=== PATIENT | male | born 1935 | race Caucasian/White ===

== ENCOUNTER 2017-11-20 08:22 | Inpatient (IN) | payer OTHER, MEDICARE ==
[~2017-11-20] VITALS: Ht 167.6 cm; Wt 73.0 kg
[~2017-11-20 08:22] MED LIST: NO HOME MEDS
[2017-11-20] MEDS ORDERED: normal saline 1000ML IV soln IV ONE (08:35)
[2017-11-20] MEDS ORDERED: GABA-530 PO (09:10)
[2017-11-20] MEDS ORDERED: RUXO15TA PO (09:10)
[2017-11-20] MEDS ORDERED: ALLO100T15 PO (09:10)
[2017-11-20 09:28] LABS: CLARITY,URINE SLIGHTLY CLOUDY (Clear); COLOR,URINE YELLOW (Yellow); GLUCOSE, URINE NEGATIVE (Neg); KETONES,URINE NEGATIVE (Neg); LEUKOCYTE ESTERASE ,URINE TRACE (Neg); NITRITES, URINE NEGATIVE (Neg); OCCULT BLOOD,URINE SMALL (Neg); PROTEIN,URINE TRACE mg/dl (Neg); UROBILINOGEN,URINE 0.2 E.U/dL (0.2-1.0)
[2017-11-20 09:31] LABS: BASOPHILS % (AUTO) 0 % (0-1); EOSINOPHILS % (AUTO) 0.1 % (0-6); HEMATOCRIT 32.6 % (42.0-52.0); HEMOGLOBIN 10.9 g/dl (14.0-17.9); LYMPHOCYTES # (AUTO) 0.3 X10'3 (1.1-4.8); LYMPHOCYTES % (AUTO) 4.4 % (21-51); MEAN CORPUSCULAR HEMOGLOBIN 30.4 PG (27.0-31.0); MEAN CORPUSCULAR HGB CONC 33.4 % (33.0-36.5); MEAN PLATELET VOLUME 7.9 FL (7.4-10.4); MONOCYTES # (AUTO) 0.1 X10'3 (0-0.9); NEUTROPHILS # (AUTO) 5.5 X10'3 (1.8-7.7); NEUTROPHILS % (AUTO) 94.5 % (42-75); PLATELET COUNT 133 X10'3 (140-440); RED BLOOD COUNT 3.59 X10'6 (4.70-6.10); RED CELL DISTRIBUTION WIDTH 18.8 % (11.5-14.5); WHITE BLOOD COUNT 5.8 X10'3 (4.5-11.0)
[2017-11-20 09:32] LABS: UA COLLECTION TYPE STRAIGHT CATH
[2017-11-20 09:36] LABS: BACTERIA,URINE 3+ /HPF (Neg); HYALINE CASTS 0-3 /LPF (NEGATIVE); SQUAMOUS EPITHELIAL CELL,UR FEW /LPF (FEW); WBC CLUMPS,URINE FEW /HPF (NEGATIVE)
[2017-11-20 09:37] LABS: COARSE GRANULAR CAST 0-3 /LPF (NEGATIVE)
[2017-11-20 09:41] LABS: ALANINE AMINOTRANSFERASE 171 U/L (12-78); ALBUMIN 2.8 G/DL (3.4-5.0); ALBUMIN/GLOBULIN RATIO 0.7 (1.1-1.5); ALKALINE PHOSPHATASE 297 IU/L (46-116); ANION GAP 12 (8-16); ASPARTATE AMINO TRANSFERASE 108 U/L (10-37); BILIRUBIN,TOTAL 0.4 MG/DL (0.1-1.0); BLOOD UREA NITROGEN 38 MG/DL (7-18); BUN/CREATININE RATIO 16.6 (5.4-32.0); CALCIUM 8.6 MG/DL (8.5-10.1); CHLORIDE 95 MMOL/L (99-107); CREATININE 2.29 MG/DL (0.60-1.10); GLUCOSE 124 MG/DL (70-104); POTASSIUM 3.6 MMOL/L (3.5-5.1); SODIUM 129 MMOL/L (135-145); TOTAL PROTEIN 7.1 G/DL (6.4-8.2); eGFR 28 ML/MIN
[2017-11-20 09:47] LABS: ANISOCYTOSIS 2+; PLATELET ESTIMATE DECREASED; TOTAL CELLS COUNTED 100; TOXIC GRANULATION 1+; TOXIC VACUOLATION FEW
[2017-11-20 09:48] LABS: ELLIPTOCYTES FEW; TEAR DROP CELLS FEW
[2017-11-20] MEDS ORDERED: CefTRIAXone 2gm/D5W 50ml 50 ML IV ONE (09:50)
[2017-11-20] MEDS ORDERED: sulfamethoxazole/trimethoprim DS (800/160mg) tablet PO ONE (09:50)
[2017-11-20] MEDS ORDERED: mag hydrox/Alum hydrox/simeth 30ml oral suspension PO PRN (11:00)
[2017-11-20] MEDS ORDERED: acetaminophen 325mg tablet PO PRN (11:00)
[2017-11-20] MEDS ORDERED: potassium Cl 40MEQ/NS 500ml 500 ML IV PRN ×2 (11:00)
[2017-11-20] MEDS ORDERED: magnesium Cl slow-release 64mg tablet PO PRN (11:00)
[2017-11-20] MEDS ORDERED: magnesium hydroxide 30ml (MOM) UD suspension PO PRN (11:00)
[2017-11-20] MEDS ORDERED: HYDROcodone/acetaminophen 5mg/325mg tablet PO PRN (11:00)
[2017-11-20] MEDS ORDERED: magnesium 4gm in 100ml NS 100 ML IV PRN (11:00)
[2017-11-20] MEDS ORDERED: ondansetron/PF 4mg/2ml inj IV PRN (11:00)
[2017-11-20] MEDS ORDERED: magnesium/D5W IVPB 50 ML IV PRN (11:00)
[2017-11-20] MEDS ORDERED: potassium Cl 20 mEq SR tablet PO PRN ×2 (11:00)
[2017-11-20] MEDS ORDERED: bisacodyl 10mg suppository rectal RC PRN (11:00)
[2017-11-20] MEDS: potassium Cl 20mEq in NS 1,000 ML IV SCH ×2 (12:53→22:51)
[2017-11-20 15:12] VITALS: BP 147/60
[2017-11-20] MEDS: azithromycin/NS 500mg/250ml 250 ML IV SCH (17:15)
[2017-11-20 19:25] VITALS: BP 157/75
[2017-11-20] MEDS: heparin, porcine 5000 units/ml vial SQ SCH (20:00)
[2017-11-20] MEDS: lactobacillus rhamnosus 10,000 MMU CELLS/CAPSULE PO SCH ×2 (20:00→20:15)
[2017-11-20] MEDS: docusate sod 100mg capsule PO SCH (20:00)
[2017-11-20] MEDS: tamsulosin 0.4mg capsule PO SCH ×2 (20:15→20:49)
[2017-11-20] MEDS ORDERED: allopurinol 100mg tablet PO SCH (21:00)
[2017-11-20] MEDS ORDERED: gabapentin 100mg capsule PO SCH (21:00)
[2017-11-21 00:05] VITALS: BP 117/69
[2017-11-21 05:36] LABS: BASOPHILS % (AUTO) 0.3 % (0-1); EOSINOPHILS % (AUTO) 0 % (0-6); HEMATOCRIT 25.5 % (42.0-52.0); HEMOGLOBIN 8.6 g/dl (14.0-17.9); LYMPHOCYTES # (AUTO) 0.2 X10'3 (1.1-4.8); LYMPHOCYTES % (AUTO) 7.4 % (21-51); MEAN CORPUSCULAR HEMOGLOBIN 30.7 PG (27.0-31.0); MEAN CORPUSCULAR HGB CONC 33.9 % (33.0-36.5); MEAN CORPUSCULAR VOLUME 90.4 FL (78-98); MEAN PLATELET VOLUME 7.6 FL (7.4-10.4); MONOCYTES # (AUTO) 0.2 X10'3 (0-0.9); MONOCYTES % (AUTO) 7.8 % (2-12); NEUTROPHILS # (AUTO) 2.6 X10'3 (1.8-7.7); NEUTROPHILS % (AUTO) 84.5 % (42-75); PLATELET COUNT 96 X10'3 (140-440); RED BLOOD COUNT 2.82 X10'6 (4.70-6.10); RED CELL DISTRIBUTION WIDTH 18.7 % (11.5-14.5); WHITE BLOOD COUNT 3.1 X10'3 (4.5-11.0)
[2017-11-21 06:04] LABS: ALANINE AMINOTRANSFERASE 121 U/L (12-78); ALBUMIN 2.1 G/DL (3.4-5.0); ALBUMIN/GLOBULIN RATIO 0.6 (1.1-1.5); ALKALINE PHOSPHATASE 186 IU/L (46-116); ANION GAP 8 (8-16); ASPARTATE AMINO TRANSFERASE 86 U/L (10-37); BILIRUBIN,TOTAL 0.3 MG/DL (0.1-1.0); BLOOD UREA NITROGEN 23 MG/DL (7-18); BUN/CREATININE RATIO 15.1 (5.4-32.0); CALCIUM 7.6 MG/DL (8.5-10.1); CHLORIDE 106 MMOL/L (99-107); CREATININE 1.52 MG/DL (0.60-1.10); GLUCOSE 96 MG/DL (70-104); POTASSIUM 5.1 MMOL/L (3.5-5.1); SODIUM 135 MMOL/L (135-145); TOTAL CARBON DIOXIDE 20.7 MMOL/L (24-32); TOTAL PROTEIN 5.5 G/DL (6.4-8.2); eGFR 44 ML/MIN
[2017-11-21 07:00] VITALS: BP 143/69
[2017-11-21] MEDS: heparin, porcine 5000 units/ml vial SQ SCH (08:00)
[2017-11-21] MEDS: K and/or MAG REPLACEMENT MC SCH (08:00)
[2017-11-21] MEDS: CefTRIAXone/D5W-Rocephin 1gm 50 ML IV SCH (08:28)
[2017-11-21] MEDS: docusate sod 100mg capsule PO SCH ×2 (08:31→20:00)
[2017-11-21] MEDS: lactobacillus rhamnosus 10,000 MMU CELLS/CAPSULE PO SCH ×2 (08:36→19:06)
[2017-11-21] MEDS: azithromycin/NS 500mg/250ml 250 ML IV SCH (09:13)
[2017-11-21 11:28] VITALS: BP 154/57
[2017-11-21] MEDS: normal saline 1000ml 1,000 ML IV SCH (13:17)
[2017-11-21] MEDS ORDERED: ALLO100T PO (18:10)
[2017-11-21] MEDS ORDERED: GABA-530 PO (18:10)
[2017-11-21 19:00] VITALS: BP 164/56
[2017-11-21] MEDS: gabapentin 100mg capsule PO SCH (19:06)
[2017-11-21] MEDS: allopurinol 100mg tablet PO SCH (19:06)
[2017-11-21] MEDS: tamsulosin 0.4mg capsule PO SCH (20:02)
[2017-11-22] MEDS: normal saline 1000ml 1,000 ML IV SCH ×3 (01:14→23:56)
[2017-11-22 01:20] VITALS: BP 134/57
[2017-11-22 07:33] VITALS: BP 104/74
[2017-11-22 07:45] LABS: BASOPHILS % (AUTO) 0.2 % (0-1); EOSINOPHILS % (AUTO) 0.3 % (0-6); HEMATOCRIT 26.6 % (42.0-52.0); LYMPHOCYTES # (AUTO) 0.3 X10'3 (1.1-4.8); LYMPHOCYTES % (AUTO) 7.9 % (21-51); MEAN CORPUSCULAR HEMOGLOBIN 30.4 PG (27.0-31.0); MEAN CORPUSCULAR HGB CONC 33.8 % (33.0-36.5); MEAN CORPUSCULAR VOLUME 90.1 FL (78-98); MEAN PLATELET VOLUME 7.7 FL (7.4-10.4); MONOCYTES # (AUTO) 0.3 X10'3 (0-0.9); MONOCYTES % (AUTO) 7.8 % (2-12); NEUTROPHILS # (AUTO) 2.7 X10'3 (1.8-7.7); NEUTROPHILS % (AUTO) 83.8 % (42-75); PLATELET COUNT 94 X10'3 (140-440); RED BLOOD COUNT 2.95 X10'6 (4.70-6.10); RED CELL DISTRIBUTION WIDTH 18.1 % (11.5-14.5); WHITE BLOOD COUNT 3.3 X10'3 (4.5-11.0)
[2017-11-22] MEDS: docusate sod 100mg capsule PO SCH ×2 (08:00→19:37)
[2017-11-22] MEDS: K and/or MAG REPLACEMENT MC SCH (08:00)
[2017-11-22] MEDS ORDERED: azithromycin 250mg tablet PO SCH (08:00)
[2017-11-22 08:01] LABS: ALANINE AMINOTRANSFERASE 125 U/L (12-78); ALBUMIN 2.2 G/DL (3.4-5.0); ALBUMIN/GLOBULIN RATIO 0.6 (1.1-1.5); ALKALINE PHOSPHATASE 188 IU/L (46-116); ANION GAP 8 (8-16); ASPARTATE AMINO TRANSFERASE 85 U/L (10-37); BILIRUBIN,TOTAL 0.3 MG/DL (0.1-1.0); BLOOD UREA NITROGEN 18 MG/DL (7-18); BUN/CREATININE RATIO 13.5 (5.4-32.0); CALCIUM 8.4 MG/DL (8.5-10.1); CHLORIDE 105 MMOL/L (99-107); CREATININE 1.33 MG/DL (0.60-1.10); GLUCOSE 92 MG/DL (70-104); MAGNESIUM 1.8 MG/DL (1.5-2.4); POTASSIUM 4.9 MMOL/L (3.5-5.1); SODIUM 136 MMOL/L (135-145); TOTAL CARBON DIOXIDE 23.1 MMOL/L (24-32); TOTAL PROTEIN 5.7 G/DL (6.4-8.2); eGFR 52 ML/MIN
[2017-11-22] MEDS: CefTRIAXone/D5W-Rocephin 1gm 50 ML IV SCH (08:01)
[2017-11-22] MEDS: lactobacillus rhamnosus 10,000 MMU CELLS/CAPSULE PO SCH ×2 (08:02→19:35)
[2017-11-22 11:37] VITALS: BP 139/68
[2017-11-22] MEDS ORDERED: acetaminophen 325mg tablet PO PRN (15:40)
[2017-11-22 18:00] VITALS: BP 159/71
[2017-11-22] MEDS: gabapentin 100mg capsule PO SCH (19:35)
[2017-11-22] MEDS: allopurinol 100mg tablet PO SCH (19:35)
[2017-11-22] MEDS: tamsulosin 0.4mg capsule PO SCH (21:18)
[2017-11-23] VITALS: BP 140/58
[2017-11-23 06:11] LABS: BASOPHILS % (AUTO) 0.3 % (0-1); EOSINOPHILS # (AUTO) 0.1 X10'3 (0-0.9); EOSINOPHILS % (AUTO) 1.5 % (0-6); HEMATOCRIT 25.9 % (42.0-52.0); HEMOGLOBIN 8.8 g/dl (14.0-17.9); LYMPHOCYTES # (AUTO) 0.3 X10'3 (1.1-4.8); LYMPHOCYTES % (AUTO) 9.6 % (21-51); MEAN CORPUSCULAR HEMOGLOBIN 30.5 PG (27.0-31.0); MEAN CORPUSCULAR HGB CONC 33.9 % (33.0-36.5); MEAN CORPUSCULAR VOLUME 89.9 FL (78-98); MEAN PLATELET VOLUME 8.2 FL (7.4-10.4); MONOCYTES # (AUTO) 0.2 X10'3 (0-0.9); MONOCYTES % (AUTO) 5.7 % (2-12); NEUTROPHILS # (AUTO) 2.9 X10'3 (1.8-7.7); NEUTROPHILS % (AUTO) 82.9 % (42-75); PLATELET COUNT 98 X10'3 (140-440); RED BLOOD COUNT 2.88 X10'6 (4.70-6.10); RED CELL DISTRIBUTION WIDTH 18.3 % (11.5-14.5); WHITE BLOOD COUNT 3.5 X10'3 (4.5-11.0)
[2017-11-23 06:40] LABS: ALANINE AMINOTRANSFERASE 132 U/L (12-78); ALBUMIN 2.2 G/DL (3.4-5.0); ALBUMIN/GLOBULIN RATIO 0.6 (1.1-1.5); ALKALINE PHOSPHATASE 176 IU/L (46-116); ANION GAP 9 (8-16); ASPARTATE AMINO TRANSFERASE 89 U/L (10-37); BILIRUBIN,TOTAL 0.3 MG/DL (0.1-1.0); BLOOD UREA NITROGEN 19 MG/DL (7-18); BUN/CREATININE RATIO 15.2 (5.4-32.0); CALCIUM 8.5 MG/DL (8.5-10.1); CHLORIDE 106 MMOL/L (99-107); CREATININE 1.25 MG/DL (0.60-1.10); GLUCOSE 96 MG/DL (70-104); MAGNESIUM 1.6 MG/DL (1.5-2.4); POTASSIUM 4.9 MMOL/L (3.5-5.1); SODIUM 137 MMOL/L (135-145); TOTAL CARBON DIOXIDE 22.2 MMOL/L (24-32); TOTAL PROTEIN 5.6 G/DL (6.4-8.2); eGFR 56 ML/MIN
[2017-11-23 07:13] VITALS: BP 153/84
[2017-11-23] MEDS: K and/or MAG REPLACEMENT MC SCH (08:00)
[2017-11-23] MEDS: CefTRIAXone/D5W-Rocephin 1gm 50 ML IV SCH (08:28)
[2017-11-23] MEDS: lactobacillus rhamnosus 10,000 MMU CELLS/CAPSULE PO SCH (08:29)
[2017-11-23] MEDS: docusate sod 100mg capsule PO SCH (08:29)
[2017-11-23] MEDS ORDERED: TAMS0.4C32 PO (09:56)
[2017-11-23] MEDS ORDERED: AZIT500T PO (09:58)
== END 2017-11-23 12:14 | disposition home or self-care (01) | DRG 682 ==
LOC: ER 08:23 → ED HOLD 10:06 → SUR 3N 11:40
PROVIDERS: ADMIT Internal Medicine; ATTEND Internal Medicine
DX: N17.9 Acute kidney failure, unspecified (principal); J18.9 Pneumonia, unspecified organism; E87.1 Hypo-osmolality and hyponatremia; N39.0 Urinary tract infection, site not specified; D47.1 Chronic myeloproliferative disease; N18.3 Chronic kidney disease, stage 3 (moderate); B96.20 Unspecified Escherichia coli [E. coli] as the cause of diseases classified elsewhere; E86.0 Dehydration; G62.9 Polyneuropathy, unspecified; I25.10 Atherosclerotic heart disease of native coronary artery without angina pectoris; K40.90 Unilateral inguinal hernia, without obstruction or gangrene, not specified as recurrent; M35.3 Polymyalgia rheumatica; M79.7 Fibromyalgia; N28.1 Cyst of kidney, acquired; N40.1 Benign prostatic hyperplasia with lower urinary tract symptoms; R33.8 Other retention of urine; F32.9 Major depressive disorder, single episode, unspecified; M10.9 Gout, unspecified; R16.1 Splenomegaly, not elsewhere classified; Z88.1 Allergy status to other antibiotic agents; Z79.899 Other long term (current) drug therapy; Z87.442 Personal history of urinary calculi
CPT/HCPCS: 36415; 71045; 74176; 80053; 81001; 83605; 83735; 84145; 85025; 87040; 87070; 87088; 92616; 96361; 96365; 99285; J0456; J0696; J1644; J7030

== ENCOUNTER 2018-03-08 09:29 | Inpatient (IN) | payer MEDICARE, OTHER ==
[2018-03-08] VITALS (14 sets, daily range): BP systolic 111–138; BP diastolic 53–98
[~2018-03-08] VITALS: Ht 167.6 cm; Wt 76.9 kg
[~2018-03-08 09:29] MED LIST changes: +ALLO100T PO; +GABA-530 PO; -NO HOME MEDS; +RUXO15TA PO; +TAMS0.4C32 PO
[2018-03-08] MEDS ORDERED: LISI40TA4 PO (11:48)
[2018-03-08 11:52] LABS: CLARITY,URINE SLIGHTLY CLOUDY (Clear); COLOR,URINE YELLOW (Yellow); GLUCOSE, URINE NEGATIVE (Neg); KETONES,URINE NEGATIVE (Neg); LEUKOCYTE ESTERASE ,URINE LARGE (Neg); OCCULT BLOOD,URINE MODERATE (Neg); PH,URINE 6.5 (4.8-8.0); PROTEIN,URINE NEGATIVE (Neg); UROBILINOGEN,URINE 0.2 E.U/dL (0.2-1.0)
[2018-03-08 11:56] LABS: BASOPHILS % (AUTO) 0.1 % (0-1); EOSINOPHILS % (AUTO) 0 % (0-6); HEMATOCRIT 39.4 % (42.0-52.0); HEMOGLOBIN 13.1 g/dl (14.0-17.9); LYMPHOCYTES # (AUTO) 0.3 X10'3 (1.1-4.8); LYMPHOCYTES % (AUTO) 6.9 % (21-51); MEAN CORPUSCULAR HEMOGLOBIN 31.4 PG (27.0-31.0); MEAN CORPUSCULAR HGB CONC 33.3 % (33.0-36.5); MEAN CORPUSCULAR VOLUME 94.3 FL (78-98); MEAN PLATELET VOLUME 7.4 FL (7.4-10.4); MONOCYTES # (AUTO) 0.3 X10'3 (0-0.9); MONOCYTES % (AUTO) 5.5 % (2-12); NEUTROPHILS # (AUTO) 4.4 X10'3 (1.8-7.7); NEUTROPHILS % (AUTO) 87.5 % (42-75); PLATELET COUNT 179 X10'3 (140-440); RED BLOOD COUNT 4.18 X10'6 (4.70-6.10); RED CELL DISTRIBUTION WIDTH 14.8 % (11.5-14.5)
[2018-03-08 11:57] LABS: ALANINE AMINOTRANSFERASE 32 U/L (12-78); ALBUMIN 3.7 G/DL (3.4-5.0); ALBUMIN/GLOBULIN RATIO 1.2 (1.1-1.5); ALKALINE PHOSPHATASE 84 IU/L (46-116); ANION GAP 7 (8-16); ASPARTATE AMINO TRANSFERASE 26 U/L (10-37); BILIRUBIN,TOTAL 0.6 MG/DL (0.1-1.0); BLOOD UREA NITROGEN 20 MG/DL (7-18); BUN/CREATININE RATIO 13.7 (5.4-32.0); CALCIUM 8.6 MG/DL (8.5-10.1); CHLORIDE 100 MMOL/L (99-107); CREATININE 1.46 MG/DL (0.60-1.10); GLUCOSE 95 MG/DL (70-104); POTASSIUM 4.4 MMOL/L (3.5-5.1); SODIUM 135 MMOL/L (135-145); TOTAL CARBON DIOXIDE 28.3 MMOL/L (24-32); TOTAL PROTEIN 6.8 G/DL (6.4-8.2); eGFR 46 ML/MIN
[2018-03-08 11:57] LABS: NITRITES, URINE NEGATIVE (Neg); UA COLLECTION TYPE OTHER
[2018-03-08 12:05] LABS: BACTERIA,URINE 2+ /HPF (Neg); MUCUS STRANDS NONE SEEN /LPF (Neg); SQUAMOUS EPITHELIAL CELL,UR NONE SEEN /LPF (FEW); WBC,URINE TNTC /HPF (0-4)
[2018-03-08] MEDS ORDERED: magnesium 4gm in 100ml NS 100 ML IV PRN (12:35)
[2018-03-08] MEDS ORDERED: potassium Cl 40MEQ/NS 500ml 500 ML IV PRN ×2 (12:35)
[2018-03-08] MEDS ORDERED: mag hydrox/Alum hydrox/simeth 30ml oral suspension PO PRN (12:35)
[2018-03-08] MEDS ORDERED: magnesium hydroxide 30ml (MOM) UD suspension PO PRN (12:35)
[2018-03-08] MEDS ORDERED: magnesium 1gm/100ml D5W IVPB 100 ML IV PRN (12:35)
[2018-03-08] MEDS ORDERED: acetaminophen 325mg tablet PO PRN (12:35)
[2018-03-08] MEDS ORDERED: potassium Cl 20 mEq SR tablet PO PRN ×2 (12:35)
[2018-03-08] MEDS ORDERED: magnesium Cl slow-release 64mg tablet PO PRN (12:35)
[2018-03-08] MEDS ORDERED: ondansetron/PF 4mg/2ml inj IV PRN ×2 (12:35→20:05)
[2018-03-08] MEDS: piperacillin/tazo 3.375gm/50ml 50 ML IV SCH ×2 (13:17→23:46)
[2018-03-08] MEDS: potassium Cl 20mEq in NS 1,000 ML IV SCH (13:18)
[2018-03-08] MEDS ORDERED: piperacillin/tazo 3.375gm/50ml 50 ML IV SCH (16:00)
[2018-03-08] MEDS ORDERED: BUPIVAcaine/PF 2.5mg/ml (0.25%) 10ml vial ONE (18:01)
[2018-03-08] MEDS ORDERED: sevoflurane 250ml liquid IH ONE (18:45)
[2018-03-08] MEDS ORDERED: fentaNYL/PF 50MCG/1 ML 2ML syringe ONE ×2 (18:55→19:20)
[2018-03-08] MEDS ORDERED: LIDOcaine 2% (20mg/ml) 5ml vial ONE (19:08)
[2018-03-08] MEDS ORDERED: rocuronium 10mg/ml inj IV ONE (19:08)
[2018-03-08] MEDS ORDERED: propofol inj 20 ML IV ONE (19:08)
[2018-03-08] MEDS ORDERED: dexamethasone sod phosphate 4mg/ml inj. ONE (19:08)
[2018-03-08] MEDS ORDERED: neostigmine methylsulfate 1 MG/ML 10ml vial ONE (19:40)
[2018-03-08] MEDS ORDERED: glycopyrrolate 0.2mg/ml inj ONE (19:40)
[2018-03-08] MEDS ORDERED: ondansetron/PF 4mg/2ml inj ONE (19:41)
[2018-03-08] MEDS ORDERED: RUXOLITINIB PHOSPHATE 15 MG PO SCH (20:00)
[2018-03-08] MEDS: JAKAFI 15 MG PO SCH (20:00)
[2018-03-08] MEDS ORDERED: ringers solution, lacted 1,000 ML IV SCH (20:03)
[2018-03-08] MEDS ORDERED: HYDROmorphone inj. 0.5 MG/0.5 ML DISP.SYRIN IV PRN (20:05)
[2018-03-08] MEDS: morphine 2 MG/ML inj. syringe IV PRN (20:29)
[2018-03-09] VITALS: BP 155/62
[2018-03-09] MEDS: morphine 2 MG/ML inj. syringe IV PRN (00:17)
[2018-03-09 00:25] VITALS: BP 131/77
[2018-03-09 04:00] VITALS: BP 123/66
[2018-03-09 05:09] LABS: BASOPHILS % (AUTO) 0 % (0-1); EOSINOPHILS % (AUTO) 0 % (0-6); HEMATOCRIT 34.5 % (42.0-52.0); HEMOGLOBIN 11.6 g/dl (14.0-17.9); LYMPHOCYTES # (AUTO) 0.1 X10'3 (1.1-4.8); MEAN CORPUSCULAR HEMOGLOBIN 31.7 PG (27.0-31.0); MEAN CORPUSCULAR HGB CONC 33.6 % (33.0-36.5); MEAN CORPUSCULAR VOLUME 94.4 FL (78-98); MEAN PLATELET VOLUME 7.8 FL (7.4-10.4); MONOCYTES # (AUTO) 0.1 X10'3 (0-0.9); MONOCYTES % (AUTO) 2.6 % (2-12); NEUTROPHILS # (AUTO) 3.7 X10'3 (1.8-7.7); NEUTROPHILS % (AUTO) 94.4 % (42-75); PLATELET COUNT 126 X10'3 (140-440); RED BLOOD COUNT 3.66 X10'6 (4.70-6.10); RED CELL DISTRIBUTION WIDTH 14.8 % (11.5-14.5); WHITE BLOOD COUNT 3.9 X10'3 (4.5-11.0)
[2018-03-09 05:14] LABS: ALANINE AMINOTRANSFERASE 24 U/L (12-78); ALBUMIN 3.1 G/DL (3.4-5.0); ALBUMIN/GLOBULIN RATIO 1.1 (1.1-1.5); ALKALINE PHOSPHATASE 66 IU/L (46-116); ANION GAP 7 (8-16); ASPARTATE AMINO TRANSFERASE 19 U/L (10-37); BILIRUBIN,TOTAL 0.6 MG/DL (0.1-1.0); BLOOD UREA NITROGEN 17 MG/DL (7-18); BUN/CREATININE RATIO 13.6 (5.4-32.0); CALCIUM 8.2 MG/DL (8.5-10.1); CHLORIDE 102 MMOL/L (99-107); CREATININE 1.25 MG/DL (0.60-1.10); GLUCOSE 189 MG/DL (70-104); MAGNESIUM 2.1 MG/DL (1.5-2.4); POTASSIUM 4.9 MMOL/L (3.5-5.1); SODIUM 136 MMOL/L (135-145); TOTAL CARBON DIOXIDE 27.4 MMOL/L (24-32); TOTAL PROTEIN 5.9 G/DL (6.4-8.2); eGFR 56 ML/MIN
[2018-03-09] MEDS: potassium Cl 20mEq in NS 1,000 ML IV SCH (06:29)
[2018-03-09 08:00] VITALS: BP 163/92
[2018-03-09] MEDS: K and/or MAG REPLACEMENT MC SCH (08:00)
[2018-03-09] MEDS ORDERED: lisinopril 20mg tablet PO SCH (08:00)
[2018-03-09] MEDS: enoxaparin 40mg/0.4ml syringe SUBCUT SCH (08:00)
[2018-03-09] MEDS ORDERED: non-formulary drug (Lisinopril* 1 TAB) PO SCH (08:00)
[2018-03-09] MEDS: allopurinol 100mg tablet PO SCH (09:24)
[2018-03-09] MEDS: piperacillin/tazo 3.375gm/50ml 50 ML IV SCH ×2 (09:26→16:38)
[2018-03-09] MEDS: JAKAFI 15 MG PO SCH ×2 (10:02→20:32)
[2018-03-09] MEDS ORDERED: ibuprofen tablet 400 MG TABLET PO PRN (11:10)
[2018-03-09] MEDS ORDERED: acetaminophen 325mg tablet PO PRN (11:10)
[2018-03-09 11:53] VITALS: BP 134/72
[2018-03-09 19:00] VITALS: BP 163/68
[2018-03-10] VITALS: BP 134/72
[2018-03-10] MEDS: piperacillin/tazo 3.375gm/50ml 50 ML IV SCH ×2 (00:15→08:24)
[2018-03-10 04:08] LABS: BASOPHILS % (AUTO) 0.1 % (0-1); EOSINOPHILS % (AUTO) 0.3 % (0-6); HEMATOCRIT 33.7 % (42.0-52.0); HEMOGLOBIN 11.3 g/dl (14.0-17.9); LYMPHOCYTES # (AUTO) 0.3 X10'3 (1.1-4.8); LYMPHOCYTES % (AUTO) 10.7 % (21-51); MEAN CORPUSCULAR HEMOGLOBIN 31.5 PG (27.0-31.0); MEAN CORPUSCULAR HGB CONC 33.5 % (33.0-36.5); MEAN CORPUSCULAR VOLUME 94.2 FL (78-98); MEAN PLATELET VOLUME 7.6 FL (7.4-10.4); MONOCYTES # (AUTO) 0.2 X10'3 (0-0.9); MONOCYTES % (AUTO) 5.7 % (2-12); NEUTROPHILS # (AUTO) 2.2 X10'3 (1.8-7.7); NEUTROPHILS % (AUTO) 83.2 % (42-75); PLATELET COUNT 131 X10'3 (140-440); RED BLOOD COUNT 3.58 X10'6 (4.70-6.10); RED CELL DISTRIBUTION WIDTH 15.1 % (11.5-14.5); WHITE BLOOD COUNT 2.7 X10'3 (4.5-11.0)
[2018-03-10 04:15] LABS: ALANINE AMINOTRANSFERASE 25 U/L (12-78); ALBUMIN 3.1 G/DL (3.4-5.0); ALBUMIN/GLOBULIN RATIO 1.1 (1.1-1.5); ALKALINE PHOSPHATASE 63 IU/L (46-116); ANION GAP 6 (8-16); ASPARTATE AMINO TRANSFERASE 24 U/L (10-37); BILIRUBIN,TOTAL 0.5 MG/DL (0.1-1.0); BLOOD UREA NITROGEN 18 MG/DL (7-18); BUN/CREATININE RATIO 11.7 (5.4-32.0); CALCIUM 8.2 MG/DL (8.5-10.1); CHLORIDE 103 MMOL/L (99-107); CREATININE 1.54 MG/DL (0.60-1.10); GLUCOSE 142 MG/DL (70-104); MAGNESIUM 2.2 MG/DL (1.5-2.4); POTASSIUM 3.8 MMOL/L (3.5-5.1); SODIUM 136 MMOL/L (135-145); TOTAL CARBON DIOXIDE 26.9 MMOL/L (24-32); TOTAL PROTEIN 5.9 G/DL (6.4-8.2); eGFR 44 ML/MIN
[2018-03-10 07:20] VITALS: BP 152/77
[2018-03-10 07:26] LABS: ANISOCYTOSIS 1+; PLATELET ESTIMATE DECREASED; TOTAL CELLS COUNTED 100
[2018-03-10] MEDS: allopurinol 100mg tablet PO SCH (07:44)
[2018-03-10] MEDS: K and/or MAG REPLACEMENT MC SCH (07:46)
[2018-03-10] MEDS: JAKAFI 15 MG PO SCH (07:46)
[2018-03-10] MEDS: enoxaparin 40mg/0.4ml syringe SUBCUT SCH (07:47)
[2018-03-10] MEDS ORDERED: AMLO5TAB PO (11:26)
[2018-03-10] MEDS ORDERED: AMOX-580 PO (11:26)
[2018-03-10 12:00] VITALS: BP 111/68
== END 2018-03-10 12:10 | disposition home or self-care (01) | DRG 342 ==
LOC: ER 09:30 → ED HOLD 12:32 → EDBEDREQ 15:47 → SUR 3N 16:50
PROVIDERS: ADMIT Internal Medicine; ATTEND Surgery
PROC: 0DTJ4ZZ Resection of Appendix, Percutaneous Endoscopic Approach (ICD-10-PCS; principal; 2018-03-08 18:53)
DX: K35.80 Unspecified acute appendicitis (principal); N13.6 Pyonephrosis; N17.9 Acute kidney failure, unspecified; M48.54XA Collapsed vertebra, not elsewhere classified, thoracic region, initial encounter for fracture; I12.9 Hypertensive chronic kidney disease with stage 1 through stage 4 chronic kidney disease, or unspecified chronic kidney disease; N18.9 Chronic kidney disease, unspecified; R33.8 Other retention of urine; A49.01 Methicillin susceptible Staphylococcus aureus infection, unspecified site; M10.9 Gout, unspecified; N40.1 Benign prostatic hyperplasia with lower urinary tract symptoms; Z88.1 Allergy status to other antibiotic agents; Z79.899 Other long term (current) drug therapy; Z87.442 Personal history of urinary calculi; Z82.49 Family history of ischemic heart disease and other diseases of the circulatory system; Z82.5 Family history of asthma and other chronic lower respiratory diseases; Z80.9 Family history of malignant neoplasm, unspecified
CPT/HCPCS: 36415; 74176; 80053; 81001; 83735; 85025; 87077; 87088; 87186; 88304; 99285; A7000; J1100; J1650; J2001; J2270; J2405; J2543; J2704; J2710; J3010; J3490; J7120

== ENCOUNTER 2018-08-09 09:38 | Day surgery (SDC) | payer MEDICARE, OTHER ==
[2018-08-02 11:44] LABS: BASOPHILS % (AUTO) 0.2 % (0-1); EOSINOPHILS % (AUTO) 0.2 % (0-6); LYMPHOCYTES # (AUTO) 0.5 X10'3 (1.1-4.8); LYMPHOCYTES % (AUTO) 11.9 % (21-51); MEAN CORPUSCULAR HEMOGLOBIN 31.5 PG (27.0-31.0); MEAN CORPUSCULAR VOLUME 92.6 FL (78-98); MEAN PLATELET VOLUME 7.6 FL (7.4-10.4); MONOCYTES # (AUTO) 0.2 X10'3 (0-0.9); MONOCYTES % (AUTO) 5.8 % (2-12); NEUTROPHILS # (AUTO) 3.2 X10'3 (1.8-7.7); NEUTROPHILS % (AUTO) 81.9 % (42-75); PRE OP HEMOGLOBIN 12.9 g/dL (14.0-17.9); PRE OP PLATELET COUNT 161 X10'3 (140-440); RED CELL DISTRIBUTION WIDTH 15.7 % (11.5-14.5)
[2018-08-02 11:55] LABS: PRE OP INR 1.1 INR; PRE OP PROTIME 10.8 SECONDS (9.0-12.0)
[2018-08-02 12:00] LABS: ALBUMIN 4.3 G/DL (3.4-5.0); ALBUMIN/GLOBULIN RATIO 1.7 (1.1-1.5); ALKALINE PHOSPHATASE 64 IU/L (46-116); BLOOD UREA NITROGEN 20 MG/DL (7-18); BUN/CREATININE RATIO 15.4 (5.4-32.0); CALCIUM 9.3 MG/DL (8.5-10.1); CHLORIDE 104 MMOL/L (99-107); PRE OP ALT 38 U/L (30-65); PRE OP ANION GAP 9 (8-16); PRE OP AST 39 U/L (10-37); PRE OP BILIRUB, TOTAL 0.8 MG/DL (0.0-1.0); PRE OP GLUCOSE 91 MG/DL (70-104); PRE OP POTASSIUM 4.8 MMOL/L (3.4-5.1); PRE OP SODIUM 140 MMOL/L (135-145); TOTAL CARBON DIOXIDE 26.9 MMOL/L (24-32); TOTAL PROTEIN 6.9 G/DL (6.4-8.2); eGFR 53 ML/MIN
[~2018-08-09] VITALS: Ht 165.1 cm; Wt 73.0 kg
[2018-08-09] VITALS (15 sets, daily range): BP systolic 92–152; BP diastolic 47–91
[~2018-08-09 09:38] MED LIST changes: -ALLO100T PO; -GABA-530 PO; +LISI10TA4 PO; -TAMS0.4C32 PO; +ceFAZolin 1GM/D5W- ADD-VANTAGE 50 ML IV ONE; +famotidine 20mg tablet PO ONE
[2018-08-09] MEDS: ringers solution, lacted 1,000 ML IV SCH ×2 (10:40→15:49)
[2018-08-09] MEDS ORDERED: fentaNYL/PF 50MCG/1 ML 2ML syringe ONE (12:23)
[2018-08-09] MEDS ORDERED: MIDAZolam 5mg/5ml vial ONE (12:24)
[2018-08-09] MEDS ORDERED: morphine 4 MG/ML inj SYRINge IV PRN ×2 (12:55)
[2018-08-09] MEDS ORDERED: meperidine/PF 25mg/ml syringe IV PRN ×3 (12:55)
[2018-08-09] MEDS ORDERED: proCHLORperazine 10 MG/2 ml inj IV PRN ×2 (12:55→13:40)
[2018-08-09] MEDS ORDERED: ondansetron/PF 4mg/2ml inj IV PRN ×2 (12:55→13:40)
[2018-08-09] MEDS ORDERED: ringers solution, lacted 1,000 ML IV SCH (12:55)
--- NOTE | 2018-08-09 13:32 | NUR ---
Received from OR via SURGICAL BED , accompanied by Anesthesiologist RAUL and report given by Anesthesiolgist. PATIENT WITH SPINAL SENSATION LEVEL AT T6 AT THIS TIME. 20G PIV IN LEFT UE RUNNING LR AT 100. [address] ZUNIGA CATHETER IRRIGATION RUNNING. PINK URINE IN CATHETER AT THIS TIME. VSS, DENIES PAIN. Addendum: 08/09/18 at 1403 by Linus Hernandez RN, RN Amended: Links added.
[2018-08-09] MEDS ORDERED: zolpidem 5mg tablet PO PRN (13:40)
[2018-08-09] MEDS ORDERED: mag hydrox/Alum hydrox/simeth 30ml oral suspension PO PRN (13:40)
[2018-08-09] MEDS ORDERED: oxybutynin 5mg tablet PO PRN (13:40)
[2018-08-09] MEDS ORDERED: acetaminophen 325mg tablet PO PRN (13:40)
--- NOTE | 2018-08-09 14:15 | NUR ---
Patient in room . I have received report from Linus BLOUNT and had the opportunity to ask questions and assume patient care.
--- NOTE | 2018-08-09 14:22 | NUR ---
ALL CRITERIA FOR TRANSFER TO THE FLOOR HAS BEEN ACHIEVED. VSS. BED LOW, CALL LIGHT AND VS. SET IN PLACE. RN PRESENT TO ACCEPT CARE. PATIENT RESTING COMFORTABLY IN BED. BELONGINGS SENT WITH PATIENT. DRESSINGS CDI. JOSE ALEJANDRO LOPEZ PRESENT TO ACCEPT CARE OF THE PATIENT. VSS. Addendum: 08/09/18 at 1440 by Linus Mackey - JOSE ALEJANDRO BLOUNT Amended: Links added.
--- NOTE | 2018-08-09 14:32 | NUR ---
Patient on the unit
[2018-08-09] MEDS: ceFAZolin 1,000 MG in NS 100ML IVPB IV SCH ×2 (15:32→23:49)
--- NOTE | 2018-08-09 15:50 | NUR ---
Medications acknowledged but not given by this RN on med/surg, eMAR hygiene completed.
[2018-08-09] MEDS ORDERED: ceFAZolin inj. 1,000 MG in dextrose 5%-water 50ml 50 ML IV SCH (16:00)
--- NOTE | 2018-08-09 18:05 | NUR ---
Problems reprioritized. Patient report given, questions answered & plan of care reviewed with Maximino BLOUNT.
--- NOTE | 2018-08-09 18:06 | NUR ---
Patient in room [facility]. I have received report from JOSE ALEJANDRO Hope and had the opportunity to ask questions and assume patient care.
[2018-08-09] MEDS: JAKAFI 15 MG PO SCH (20:00)
[2018-08-09] MEDS: docusate sod 100mg capsule PO SCH (20:26)
[2018-08-09] MEDS: potassium cl 20mEq in 1/2 NS 1,000 ML IV SCH ×2 (21:37→21:58)
[2018-08-10] VITALS: BP 155/69
[2018-08-10 04:30] VITALS: BP 170/77
[2018-08-10] MEDS: potassium cl 20mEq in 1/2 NS 1,000 ML IV SCH (05:13)
[2018-08-10 05:17] LABS: BASOPHILS % (AUTO) 0.1 % (0-1); EOSINOPHILS % (AUTO) 0.3 % (0-6); HEMATOCRIT 34.1 % (42.0-52.0); HEMOGLOBIN 11.7 g/dl (14.0-17.9); LYMPHOCYTES # (AUTO) 0.4 X10'3 (1.1-4.8); LYMPHOCYTES % (AUTO) 12.7 % (21-51); MEAN CORPUSCULAR HEMOGLOBIN 31.8 PG (27.0-31.0); MEAN CORPUSCULAR HGB CONC 34.2 g/dL (33.0-36.5); MEAN CORPUSCULAR VOLUME 93.2 FL (78-98); MEAN PLATELET VOLUME 7.8 FL (7.4-10.4); MONOCYTES # (AUTO) 0.1 X10'3 (0-0.9); MONOCYTES % (AUTO) 4.6 % (2-12); NEUTROPHILS # (AUTO) 2.6 X10'3 (1.8-7.7); NEUTROPHILS % (AUTO) 82.3 % (42-75); PLATELET COUNT 138 X10'3 (140-440); RED BLOOD COUNT 3.66 X10'6 (4.70-6.10); RED CELL DISTRIBUTION WIDTH 15.7 % (11.5-14.5); WHITE BLOOD COUNT 3.2 X10'3 (4.5-11.0)
[2018-08-10 05:28] LABS: ALBUMIN 3.4 G/DL (3.4-5.0); ANION GAP 7 (8-16); BLOOD UREA NITROGEN 26 MG/DL (7-18); BUN/CREATININE RATIO 18.6 (5.4-32.0); CALCIUM 8.7 MG/DL (8.5-10.1); CHLORIDE 105 MMOL/L (99-107); GLUCOSE 98 MG/DL (70-104); POTASSIUM 5.3 MMOL/L (3.5-5.1); SODIUM 137 MMOL/L (135-145); TOTAL CARBON DIOXIDE 24.8 MMOL/L (24-32); eGFR 49 ML/MIN
--- NOTE | 2018-08-10 06:25 | NUR ---
Problems reprioritized. Patient report given, questions answered & plan of care reviewed with JOSE ALEJANDRO Hope.
--- NOTE | 2018-08-10 06:48 | NUR ---
Patient in room [facility]. I have received report from Maximino BLOUNT and had the opportunity to ask questions and assume patient care.
[2018-08-10] MEDS ORDERED: pantoprazole 40mg Tablet.DR PO SCH (07:30)
[2018-08-10] MEDS ORDERED: lisinopril 10 MG tablet PO SCH (08:00)
[2018-08-10] MEDS: JAKAFI 15 MG PO SCH (08:00)
[2018-08-10 08:03] VITALS: BP 141/70
[2018-08-10] MEDS: docusate sod 100mg capsule PO SCH (08:06)
--- NOTE | 2018-08-10 08:09 | NUR ---
Discussed patient HR of 52 and SBP of 141, patient wants to take his lisinopril even though his HR is below 60. 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 No parameters for HR ordered for this medication for HR, only hold if SBP is below 100.
[2018-08-10] MEDS ORDERED: DOCU-28 PO (09:48)
[2018-08-10 11:45] VITALS: BP 106/69
--- NOTE | 2018-08-10 12:09 | NUR ---
Patient discharged. VSS, A&Ox4. All education provided. Patient given 2L rosas bag for night use. Educated on use and how to apply. Leg bag attached for patient to go home currently with. Radhames blanco assessed and patient going home with them on, no break down. Patients urine still pink, did not get any redder with ambulation. Patient is ambulating independently, tolerated well. Assisted patient to the lobby with . All belongings taken, no medications in the pharmacy. Patient refuses Colace scrip, states he doesn't need it. Patient will make followup appointment with Dr. William, educated the need to contact doc if he has any complications or return to the ED.
[2018-08-11] MEDS ORDERED: HYDROcodone/acetaminophen 10/325mg tab PO PRN (23:55)
== END 2018-08-10 11:49 | disposition home or self-care (01) ==
LOC: PAS 09:38 → SUR 3N 14:49 → PAS 08-10 11:49
PROVIDERS: ATTEND Urology
DX: N32.0 Bladder-neck obstruction (principal); C61 Malignant neoplasm of prostate; M10.9 Gout, unspecified; I10 Essential (primary) hypertension; M19.90 Unspecified osteoarthritis, unspecified site; Z87.440 Personal history of urinary (tract) infections; Z88.1 Allergy status to other antibiotic agents; Z79.899 Other long term (current) drug therapy; Z87.442 Personal history of urinary calculi
CPT/HCPCS: 36415; 52601; 80048; 80053; 85025; 85610; 85730; 86885; 86900; 86901; J0690; J2250; J3010; J7120; 88305; A4346; A4615; G0378; J7030; J7060